=== PATIENT | female | born 1950 | race Caucasian/White ===

== ENCOUNTER 2019-05-25 12:27 | Outpatient (CLI) | payer MEDICARE ==
--- NOTE | 2019-05-25 14:56 | MRI ---
MRI CERVICAL SPINE NONCONTRAST: Date: 05/25/2019 HISTORY: 69-year-old female with cervical radiculopathy and chronic cervicalgia. COMPARISON: None. FINDINGS: The cervical spinal cord is normal in size and signal. Vertebral body heights are maintained. No win r subluxation. C1-2: No central stenosis. C2-3: Disc space maintained. Mild to moderate right facet DJD. Mild left facet DJD. No central or ne ural foraminal stenosis. C3-4: Mild disc space narrowing. Mild right facet DJD. Severe left facet degenerative hypertrophy. B one marrow edema involving articular facets and lateral masses of C3 and C4 on the left. Left facet j oint effusion. Mild surrounding soft tissue adjacent edema. Small bilateral uncinate process osteophy naya. Moderate left neural foraminal stenosis. No right neural foraminal stenosis. No central stenosis . C4-5: Disc space maintained. Small focal central disc herniation indents the ventral surface of spin al cord, but there is no central spinal canal stenosis. Small bilateral uncinate process osteophytes encroach upon bilateral neural foramina, together with mild right facet degenerative hypertrophy and moderate left degenerative facet hypertrophy, causing bilateral moderate neural foraminal stenosis. C5-6: Moderate disc space narrowing. Broad based disc-osteophytic bar complex encroaches upon anteri or aspect of spinal canal. Superimposed small focal central disc herniation or disc-osteophyte comple x slightly indents the ventral surface of the spinal cord. Thickened ligamentum flavum abuts dorsal s urface of the spinal cord. Overall moderate to severe central spinal canal stenosis. Moderately large bilateral uncinate process osteophytes cause severe bilateral neural foraminal stenosis. No high gra de facet DJD. Mild left C5 lateral mass bone marrow edema. C6-7: Moderate disc space narrowing. Broad based disc-osteophytic bar complex abuts ventral surface of spinal cord. Mild ligamentum flavum thickening. Moderate to severe central spinal canal stenosis, less severe than at the C5-6 level. Moderately large bilateral uncinate process osteophytes cause sev ere bilateral neural foraminal stenosis. No high grade facet DJD. C7-T1: Disc space maintained. Moderate left facet DJD. Normal right facet joint. No high grade centr al or neural foraminal stenosis. IMPRESSION: 1. 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 2. High grade, moderate to severe central spinal canal stenosis at C5-6 and C6-7. 3. Several levels of high grade neural foraminal stenosis, including bilaterally severe at C5-6 and C6-7. 4. Cervical spondylosis with mild and moderate degenerative disc disease, and several levels of left -sided facet arthrosis. POS: [facility]
== END 2019-05-25 12:28 | disposition home or self-care (01) ==
LOC: SCSMRI 12:27
PROVIDERS: ATTEND Nurse Practitioner Family
DX: M47.22 Other spondylosis with radiculopathy, cervical region (principal); M48.02 Spinal stenosis, cervical region; R60.0 Localized edema
CPT/HCPCS: 72141